=== PATIENT | male | born 1950 | race Caucasian/White ===

== ENCOUNTER 2023-08-05 23:49 | Emergency (ER) | payer OTHER, BC ==
[2023-08-06 00:49] LABS: Absolute Eosinophils 0.6 K/uL (0-0.5); Absolute Neutrophil 5.5 K/uL (1.8-8.0); Basophils % 0.4 % (0-1.3); Eosinophils % 6.1 % (0-4.4); Hematocrit 37.1 % (39.6-49.0); Hemoglobin 12.8 g/dL (13.6-17.9); Lymphocytes % 21.9 % (15.3-44.8); MCH 31.2 pg (27.0-35.0); MCHC 34.6 g/dL (32.0-36.0); MCV 90.1 fL (80-100); MPV 7.9 fL (7.6-11.3); Monocytes % 11.3 % (3.3-12.3); Neutrophils % 60.3 % (41.7-73.7); Nucleated Red Blood Cells % 0.1 % (0-0); Platelets 238 thou/uL (152-406); RBC Red Blood Cell Count 4.12 M/uL (4.33-5.43); Red Cell Distribution Width 13.6 % (12.1-15.2)
[2023-08-06 00:55] LABS: PT Prothrombin Time 10.1 SECONDS (9.5-12.5); PTT, Activated Partial Thromb 30.7 SECONDS (24.3-36.9); Protime INR 0.92
[2023-08-06 01:01] LABS: Albumin 3.4 g/dL (3.4-5.0); Albumin/Globulin Ratio 1.1 (1.1-1.8); Anion Gap 8.7 mEq/L (5.0-15.0); Bilirubin Direct 0.2 mg/dL (0-0.2); Bilirubin Indirect, Calculated 0.3 mg/dL (0.2-0.8); Bilirubin Total 0.5 mg/dL (0.2-1.0); Magnesium 2.1 mg/dL (1.6-2.4); Potassium 3.7 mEq/L (3.5-5.1); Protein, Total 6.4 g/dL (6.4-8.2); Troponin High Sensitivity 6.6 pg/mL (<58.9)
--- NOTE | 2023-08-06 02:25 | ER ---
Nurse's Notes [facility] Name: Artie Ventura Age: 72 yrs Sex: Male : 1950 Arrival Date: 08/05/2023 Time: 23:49 Bed 8 Private MD: Diagnosis: Syncope and collapse Presentation: 08/05 00:05 Chief complaint: Patient states: Pt states he was being kissed by his when he had tl4 an episode of syncope lasting approx 5-10 seconds. states she guided patient to the floor and he did not strike his head. Pt denies CP, dizziness prior to event. Coronavirus screen: At this time, the client does not indicate any symptoms associated with coronavirus-19. Ebola Screen: No symptoms or risks identified at this time. Initial Sepsis Screen: Does the patient meet any 2 criteria? No. Patient's initial sepsis screen is negative. Does the patient have a suspected source of infection? No. Patient's initial sepsis screen is negative. Risk Assessment: Do you want to hurt yourself or someone else? Patient reports no desire to harm self or others. Onset of symptoms was August 05, 2023 at 23:00. 00:05 Method Of Arrival: Ambulatory tl4 00:05 Acuity: HUANG 3 tl4 Triage Assessment: 00:08 General: Appears in no apparent distress. Behavior is calm, cooperative. Pain: Denies tl4 pain. EENT: No signs and/or symptoms were reported regarding the EENT system. Neuro: Level of Consciousness is awake, alert, obeys commands, Oriented to person, place, time, situation, Moves all extremities. Full function Gait is steady, Speech is normal, Facial symmetry appears normal, Denies weakness dizziness, headache. Neuro: Reports a syncopal episode. Cardiovascular: Capillary refill < 3 seconds Patient's skin is warm and dry. Respiratory: Airway is patent Respiratory effort is even, unlabored, Respiratory pattern is regular, symmetrical. GI: No signs and/or symptoms were reported involving the gastrointestinal system. : No signs and/or symptoms were reported regarding the genitourinary system. Derm: No signs and/or symptoms reported regarding the dermatologic system. Musculoskeletal: No signs and/or symptoms reported regarding the musculoskeletal system. Historical: - Allergies: 00:07 PENICILLINS; tl4 - Home Meds: 00:07 None [Active]; tl4 - PMHx: 00:07 None; tl4 - PSHx: 00:07 None; tl4 - Immunization history:: Adult Immunizations unknown. - Infectious Disease History:: Denies. - Social history:: Smoking status: Patient denies any tobacco usage or history of. - Family history:: not pertinent. Screenin:18 [facility] ED Fall Risk Assessment (Adult) History of falling in the last 3 months, tm6 including since admission Yes- physiologic fall (2 pts) Confusion or Disorientation No (0 pts) Intoxicated or Sedated No (0 pts) Impaired Gait No (0 pts) Mobility Assist Device Used No (0 pt) Altered Elimination No (0 pt) Score/Fall Risk Level 0 - 2 = Low Risk Oriented to surroundings, Maintained a safe environment. Abuse screen: Denies threats or abuse. Denies injuries from another. Nutritional screening: No deficits noted. Tuberculosis screening: No symptoms or risk factors identified. Assessment: 00:18 General: Appears in no apparent distress. Behavior is calm, cooperative. Pain: Denies tm6 pain. Neuro: Level of Consciousness is awake, alert, obeys commands, Oriented to person, place, time, situation, Reports a syncopal episode. Cardiovascular: No deficits noted. Capillary refill < 3 seconds Patient's skin is warm and dry. Respiratory: Airway is patent Respiratory effort is even, unlabored, Respiratory pattern is regular, symmetrical. GI: No signs and/or symptoms were reported involving the gastrointestinal system. Abdomen is flat, non-distended. : No signs and/or symptoms were reported regarding the genitourinary system. EENT: No signs and/or symptoms were reported regarding the EENT system. Derm: No signs and/or symptoms reported regarding the dermatologic system. Musculoskeletal: No signs and/or symptoms reported regarding the musculoskeletal system. 01:14 Reassessment: Patient appears in no apparent distress at this time. Patient and/or tm6 family updated on plan of care and expected duration. Pain level reassessed. Patient is alert, oriented x 3, equal unlabored respirations, skin warm/dry/pink. 02:30 Reassessment: Patient and/or family updated on plan of care and expected duration. Pain tm6 level reassessed. Patient is alert, oriented x 3, equal unlabored respirations, skin warm/dry/pink. Vital Signs: 00:05 BP 146 / 73; Pulse 85; Resp 22; Temp 98.3(O); Pulse Ox 98% on R/A; Weight 68.04 kg; tl4 Height 5 ft. 10 in. ; Pain 0/10; 00:15 BP 113 / 88; Pulse 80; Resp 20; Pulse Ox 97% on R/A; km8 00:30 BP 117 / 57; Pulse 84; Resp 16; Pulse Ox 97% on R/A; km8 01:00 BP 119 / 59; Pulse 80; Resp 16; Pulse Ox 97% on R/A; km8 01:30 BP 120 / 63; Pulse 77; Resp 16; Pulse Ox 97% on R/A; km8 02:30 BP 112 / 76; Pulse 74; Resp 19; Temp 97.1(TE); Pulse Ox 97% on R/A; Pain 0/10; tm6 00:05 Body Mass Index 21.52 (68.04 kg, 177.8 cm) tl4 00:05 Pain Scale: Adult tl4 02:30 Pain Scale: Adult tm6 ED Course: 08/04 23:52 Patient arrived in ED. ra3 23:59 Josselyn Connolly [facility]-C [facility] kb 23:59 Nael Son MD is Attending Physician. kb 08/05 00:07 Triage completed. tl4 00:09 Kelli Moreno, RN is Primary Nurse. tm6 00:09 Arm band placed on right wrist. tl4 00:18 Patient has correct armband on for positive identification. Placed in gown. Bed in low tm6 position. Call light in reach. Side rails up X2. Provided Education on: use of call mckeon. Client placed on continuous cardiac and pulse oximetry monitoring. NIBP monitoring applied. ekg monitor on. Pulse ox on. NIBP on. Door closed. Noise minimized. Pillow given. 00:18 Basic Metabolic Panel Sent. tm6 00:18 CBC with Diff Sent. tm6 00:18 Hepatic Function Sent. tm6 00:18 Magnesium Sent. tm6 00:18 Protime (+inr) Sent. tm6 00:18 Ptt, Activated Sent. tm6 00:18 Troponin High Sensitivity Sent. tm6 00:18 EKG done, by ED staff, reviewed by Josselyn ZHENG. Inserted saline lock: 20 tm6 gauge in right wrist, using aseptic technique. 00:32 Chest Single View XRAY In Process Unspecified. EDMS 02:24 Santiago Gifford MD is Referral Physician. sp4 02:30 No provider procedures requiring assistance completed. IV discontinued, intact, tm6 bleeding controlled, No redness/swelling at site. Pressure dressing applied. Administered Medications: No medications were administered Medication: 00:18 VIS not applicable for this client. tm6 Outcome: 02:25 Discharge ordered by . sp4 02:31 Discharged to home ambulatory, with family, tm6 02:31 Condition: stable 02:31 Discharge instructions given to patient, family, Instructed on discharge instructions, follow up and referral plans. Demonstrated understanding of instructions, follow-up care, 02:31 Patient left the ED. tm6 Signatures: Dispatcher [employer] EDNY Josselyn Connolly, MARCE ARAGONP-CkNael Jiang MD MD sp4 Digna Delacruz RN RN km8 Kelli Moreno RN RN tm6 Josué Hernandez RN RN tl4 Evelin Gottlieb 3
--- NOTE | 2023-08-06 02:25 | EDPHYS ---
Physician Documentation [facility] Name: Artie Ventura Age: 72 yrs Sex: Male : 1950 Arrival Date: 08/05/2023 Time: 23:49 Bed 8 Private MD: ED Physician Nael Son HPI: 08/05 00:14 This 72 yrs old Male presents to ER via Ambulatory with complaints of Passed out. kb 00:14 Pt is a 72 year old male who presents for syncope episode that occurred about 1 hour kb [employer]. States he had been working at the house all day while his was with her sister in [place]. States she came home just before 11 and started giving him a bunch of kisses when she came through the door and he passed out. Did not hit his head or sustain any injuries. states he was out for just a few seconds. Pt states he feels fine now, but wanted to check his blood pressure since that happened and couldn't find his machine so that is why they came in. Historical: - Allergies: 00:07 PENICILLINS; tl4 - Home Meds: 00:07 None [Active]; tl4 - PMHx: 00:07 None; tl4 - PSHx: 00:07 None; tl4 - Immunization history:: Adult Immunizations unknown. - Infectious Disease History:: Denies. - Social history:: Smoking status: Patient denies any tobacco usage or history of. - Family history:: not pertinent. ROS: 00:14 Constitutional: As per HPI kb Exam: 00:14 Constitutional: This is a well developed, well nourished patient who is awake, alert, kb and in no acute distress. Head/Face: Normocephalic, atraumatic. ENT: Moist Mucous membranes Cardiovascular: Regular rate Respiratory: Respirations even and unlabored. No increased work of breathing. Talking in full sentences Abdomen/GI: Soft, non-tender. No distention Skin: Warm, dry with normal turgor. Normal color. MS/ Extremity: Pulses equal, no cyanosis. Neurovascular intact. Full, normal range of motion. Neuro: Awake and alert, GCS 15, oriented to person, place, time, and situation. Moves all extremities. Normal gait. 00:30 ECG was reviewed by the Attending Physician. kb Vital Signs: 00:05 BP 146 / 73; Pulse 85; Resp 22; Temp 98.3(O); Pulse Ox 98% on R/A; Weight 68.04 kg; tl4 Height 5 ft. 10 in. ; Pain 0/10; 00:15 BP 113 / 88; Pulse 80; Resp 20; Pulse Ox 97% on R/A; km8 00:30 BP 117 / 57; Pulse 84; Resp 16; Pulse Ox 97% on R/A; km8 01:00 BP 119 / 59; Pulse 80; Resp 16; Pulse Ox 97% on R/A; km8 01:30 BP 120 / 63; Pulse 77; Resp 16; Pulse Ox 97% on R/A; km8 02:30 BP 112 / 76; Pulse 74; Resp 19; Temp 97.1(TE); Pulse Ox 97% on R/A; Pain 0/10; tm6 00:05 Body Mass Index 21.52 (68.04 kg, 177.8 cm) tl4 00:05 Pain Scale: Adult tl4 02:30 Pain Scale: Adult tm6 MDM: 08/04 23:59 Patient medically screened. kb 08/05 00:16 Differential Diagnosis: aortic aneurysm, cardiac arrhythmia, emotional response, kb idiopathic syncope, vasovagal episode. Data reviewed: vital signs, nurses notes. Historians other than the Patient: Spouse/Significant Other: . 00:49 Transition of care: After a detail discussion of the patient's case, care is kb transferred to Nael Son MD. 02:14 ED course: EXAM DESCRIPTION: Chest Single View CLINICAL HISTORY: syncope COMPARISON: sp4 None FINDINGS: Cardiac silhouette is within normal limits. EKG leads project over the chest. There is no focal parenchymal or pleural disease. There is no acute osseous process visualized. IMPRESSION: No evidence of acute cardiopulmonary disease. . 02:25 Differential Diagnosis altered mental status, sepsis, flu. ED course: Orthostatic vital sp4 signs negative. Patient stable for discharge home. . 08/05 00:04 Order name: Basic Metabolic Panel; Complete Time: 02:13 kb 08/05 00:04 Order name: CBC with Diff; Complete Time: 00:54 kb 08/05 00:04 Order name: Hepatic Function; Complete Time: 02:13 kb 08/05 00:04 Order name: Magnesium; Complete Time: 02:13 kb 08/05 00:04 Order name: Protime (+inr); Complete Time: 02:13 kb 08/05 00:04 Order name: Ptt, Activated; Complete Time: 02:13 kb 08/05 00:04 Order name: Troponin High Sensitivity; Complete Time: 02:13 kb 08/05 00:04 Order name: Chest Single View XRAY kb 08/05 00:04 Order name: EKG; Complete Time: 00:04 kb 08/05 00:04 Order name: Cardiac monitoring; Complete Time: 00:17 kb 08/05 00:04 Order name: EKG - Nurse/Tech; Complete Time: 00:17 kb 08/05 00:04 Order name: IV Saline Lock; Complete Time: 00:18 kb 08/05 00:04 Order name: Labs collected and sent; Complete Time: 00:18 kb 08/05 00:04 Order name: NPO; Complete Time: 00:18 kb 08/05 00:04 Order name: O2 Per Protocol; Complete Time: 00:18 kb 08/05 00:04 Order name: O2 Sat Monitoring; Complete Time: 00:18 kb EC:30 Rate is 83 beats/min. Rhythm is regular. QRS [place] is Normal. IN interval is normal at kb 190 msec. QRS interval is normal at 92 msec. QT interval is normal at 455 msec. Administered Medications: No medications were administered Disposition: 02:23 Co-signature as Attending Physician, Nael Son MD I agree with the assessment sp4 and plan of care. I reviewed the patient's care provided by Advanced Practice Provider \T\ agree w/ the diagnosis \T\ care plan. I personally saw the pt \T\ performed a substantive portion of the visit, incldng all aspects of the (History/Exam/Medical Decision Making). Disposition Summary: 08/06/23 02:25 Discharge Ordered Problem: new sp4 Symptoms: have improved sp4 Condition: Stable sp4 Diagnosis - Syncope and collapse sp4 Followup: sp4 - With: Santiago Gifford MD - When: 7 - 10 days - Reason: Recheck today's complaints Discharge Instructions: - Discharge Summary Sheet sp4 - Syncope, [id number] sp4 Forms: - Patient Portal Instructions sp4 Signatures: Dispatcher [employer] Josselyn Miles FNP-C FNP-Ckb Potepalov, Nael, MD MD sp4 Josué Hernandez RN RN tl4 Corrections: (The following items were deleted from the chart) 00:04 00:04 BASIC METABOLIC PANEL+C.LAB.BRZ ordered. EDMS EDMS 00:04 00:04 CBC+H.LAB.BRZ ordered. EDMS EDMS 00:04 00:04 HEPATIC FUNCTION+C.LAB.BRZ ordered. EDMS EDMS 00: 00:04 MAGNESIUM+C.LAB.BRZ ordered. EDMS EDMS 00:04 00:04 PROTIME (+INR)+COAG.LAB.BRZ ordered. EDMS EDMS 00:04 00:04 PTT, ACTIVATED+COAG.LAB.BRZ ordered. EDMS EDMS 00:04 00:04 Troponin High Sensitivity+C.LAB.BRZ ordered. EDMS EDMS
[2023-08-06 02:37] VITALS: O2SAT 97
[2023-08-06 03:06] VITALS: BP 112/76; TEMP 97.1
--- NOTE | 2023-08-06 13:27 | RAD REPORT ---
EXAM DESCRIPTION: RAD - Chest Single View - 08/06/2023 12:30 am CLINICAL HISTORY: Syncope COMPARISON: None FINDINGS: Cardiac silhouette is within normal limits. EKG leads project over the chest. There is no focal parenchymal or pleural disease. There is no acute osseous process visualized. IMPRESSION: No evidence of acute cardiopulmonary disease. Electronically signed by: John Randall MD 08/06/2023 12:46 AM CDT Due to temporary technical issues with the PACS/Fluency reporting system, reports are being signed by the in house radiologist without review as a courtesy to ensure prompt reporting. The interpreting R adiologist is fully responsible for the content of the report.
--- NOTE | 2023-08-06 14:00 | EKG ---
Test Date: 2023-08-06 Test Time: 00:16:10 Sales And Leasing Consultant: MARGUERITE MEASUREMENT RESULTS: Intervals: Rate: 83 SD: 190 QRSD: 92 QT: 388 QTc: 455 [place]: P: 75 SD: 190 QRS: 65 T: 72 INTERPRETIVE STATEMENTS: Normal sinus rhythm Normal ECG Compared to ECG 03/18/2017 05:06:51 No significant changes Electronically Signed On 08-06-23 13:59:09 CDT by Santiago Gifford
== END 2023-08-06 02:31 | disposition home or self-care (01) ==
LOC: ER 23:49
DX: R55 Syncope and collapse (principal); Z88.0 Allergy status to penicillin
CPT/HCPCS: 36415; 71045; 80048; 80076; 83735; 84484; 85025; 85610; 85730; 93005; 99284